=== PATIENT | male | born 1945 | race Two or more races ===

== ENCOUNTER 2016-08-19 22:51 | Emergency (ER) | payer SELFPAY ==
--- NOTE | 2016-08-19 22:57 | UCPHY ---
H & P Patient Type: New HPI/ROS: Patient is Citizen [place]-speaking only complains of chest pain of 1 hours duration moderate intensity associated with nausea vomiting diaphoresis. He also has associated dyspnea. No exacerbating or alleviating factors. Patient has a history of previous AZ. He also has a history of [id number]-[id number] diabetes and hypertension. ROS: Limited due to Citizen [place]speaking only but no fevers or cough recently. No palpitations or other symptoms except for ongoing lightheadedness and generalized weakness since the onset of the symptoms. 10 point ROS is otherwise negative Source: Family Exam Limitations: Language barrier - Medical/Surgical History PMH: Previous [place] Hypertension Rff-tycntgu-[id number] diabetes - Family History Significant Family History: No pertinent family hx - Social History Smoking Status: Unknown if ever smoked Alcohol Use: None Drug Use: None Additional Social History: From [place] - Physical Exam Exam: General Appearance: Diaphoretic acutely ill-appearing male Alert, no distress. Eyes: Pupils equal and round no pallor or injection. ENT, Mouth: Mucous membranes moist. Respiratory: Clear to auscultation bilaterally. Cardiovascular: Regular rate and rhythm. No murmur gallop rub. Gastrointestinal: Abdomen is soft and nontender, no masses, bowel sounds normal. Neurological: Alert. Patient appears fatigued no focal deficits are appreciated Skin: Diaphoretic and pale Musculoskeletal: Neck is supple nontender. Extremities are symmetrical, full range of motion. Psychiatric: Flat affect. DIFFERENTIAL DIAGNOSIS: After history and physical exam differential diagnosis was considered for AZ, coronary syndrome , thoracic aortic dissection, Medical Decision Making - Diagnostics EKG Interpretation: 12 lead EKG performed upon arrival at 10:46 p.m. reveals sinus rhythm at 87 Intervals normal [place]: Normal ST elevation inferior leads consistent with acute ST-elevation AZ. Reciprocal changes present anteriorly, mild ST depression in V1 possible posterior involvement. ED Course/Re-evaluation: Supple Zofran Aspirin 324 Monitor Nasal cannula O2 for O2 sat of 94% on room air I spoke with Dr. velasquez-emergency physician at [facility] accepts the patient for emergent transfer for ST elevation [place] Departure - Departure Clinical Impression: ST-segment elevation myocardial infarction (STEMI) of inferior wall Condition: Serious - PQRS PQRS Measurement: 134: Depression screening and followup, PRIME MD-PHQ2 (12 years and older) Over the last 2 weeks, how often have you been bothered by any of the following problems? 1. Feeling down, depressed, or hopeless? 2. Little interest or pleasure in doing things? [Patient answered no to both 1 and 2] [Patient answered yes to at least 1, referred to PCP for further evaluation.] [Not done because] [altered mental status] [patient refused] [critically ill]. 130: Documentation of medications. [Reviewed all patient medications, doses, route and frequency.] [Unable to obtain meds due to] [critical illness] [altered mental status] [ patient did not know]. 226: Do you smoke? [Yes, counseled to stop.] [No.] 47: 65 and older: Advanced care planning. Patient designates surrogate decision maker as [parent] [spouse] [ ]. [Patient refused.] [Patient has advanced directive.] 51: 18 years old and older with diagnosis of COPD, spirometry performance. [Spirometry not performed; equipment not available.] [Patient has no history of COPD] 52: 18 years old and older with COPD and symptoms of COPD or FEV1<60% predicted prescribed a B Agonist. [Spirometry not performed; equipment not available.]
[2016-08-19 23:02] LABS: % IMMATURE GRANULYOCYTES 0.5 % (0.0-1.1); ABSOLUTE IMMATURE GRANULOCYTES 0.06 10^3/uL (0.00-0.10); ADD DIFF? NO; ADD MORPH? NO; ADD SCAN? NO; ATYPICAL LYMPHOCYTE FLAG 0 (0-99); FRAGMENT RBC FLAG 0 (0-99); HEMATOCRIT 35.1 % (40.0-51.0); HEMOGLOBIN 11.7 g/dL (13.7-17.5); LEFT SHIFT FLG 0 (0-99); LIPEMIA HEMOLYSIS FLAG 80 (0-99); MEAN CELL HEMOGLOBIN CONCENTR. 33.3 g/dL (32.4-36.7); MEAN CELL VOLUME 95.9 fL (81.5-99.8); MEAN PLATELET VOLUME 10.4 fL (8.7-11.7); PLATELET CLUMPS FLAG 0 (0-99); PLATELET COUNT 199 10^3/uL (150-400); RED BLOOD CELL COUNT 3.66 10^6/uL (4.40-6.38); RED CELL DISTRIBUTION WIDTH 14.3 % (11.5-15.2)
[2016-08-19] MEDS ORDERED: ASPIRIN 81 MG CHEWABLE TAB PO ONE (23:02)
[2016-08-19] MEDS ORDERED: ONDANSETRON DISINTEGRATING 4 MG TAB PO ONE (23:03)
[2016-08-19 23:10] LABS: ANION GAP 16 mEq/L (8-16); CARBON DIOXIDE 13 mEq/l (22-31); CHLORIDE 105 mEq/L (97-110); CREATININE 6.2 mg/dL (0.7-1.3); GLOMERULAR FILTRATION RATE 9; GLUCOSE 267 mg/dL (70-100); POTASSIUM 5.3 mEq/L (3.5-5.2); SODIUM 134 mEq/L (134-144)
[2016-08-19 23:33] VITALS: BP 123/87; PULSE 89; RESP 20; O2SAT 94
--- NOTE | 2016-08-19 23:37 | CPEKG ---
Heart Rate: 87 RR Interval: 690 P-R Interval: 204 QRSD Interval: 146 QT Interval: 404 QTC Interval: 486 P [place]: 44 QRS [place]: 119 T Wave [place]: -30 EKG Severity - ABNORMAL ECG - EKG Impression: SINUS RHYTHM EKG Impression: NONSPECIFIC INTRAVENTRICULAR CONDUCTION DELAY EKG Impression: INFERIOR INJURY, PROBABLE EARLY ACUTE INFARCT EKG Impression: ANTERIOR INFARCT, AGE INDETERMINATE EKG Impression: LATERAL LEADS ARE ALSO INVOLVED EKG Impression: Given ST depression in V1 -potential posterior infarct associated with inferior EKG Impression: [place] Electronically Signed By: Wander Otero 19-Aug-2016 23:41:03
== END 2016-08-19 23:10 | disposition short-term general hospital (02) ==
LOC: CED 22:51
DX: I21.3 ST elevation (STEMI) myocardial infarction of unspecified site (principal); N17.9 Acute kidney failure, unspecified; E11.9 Type 2 diabetes mellitus without complications; I10 Essential (primary) hypertension; Z86.73 Personal history of transient ischemic attack (TIA), and cerebral infarction without residual deficits
CPT/HCPCS: 80048-PO; 82550-PO; 84484-PO; 85025-PO; G0463-PO